=== PATIENT | female | born 1940 | race Caucasian/White ===

== ENCOUNTER 2016-10-09 09:29 | Inpatient (IN) ==
[~2016-10-09 09:29] MED LIST: ASPIRIN 325 MG TABLET PO ONE; DIAZEPAM 5 MG TABLET PO ONE; MAGNESIUM SULF RIDER 2 GM in PREMIX 1 EACH IV PRN; POTASSIUM CHLORIDE RIDER 10 MEQ in PREMIX 1 EACH IV PRN; diphenhydrAMINE CAP 25 MG CAPSULE PO ONE
[2016-10-09] MEDS ORDERED: DIAZEPAM 5 MG TABLET ONE (10:21)
[2016-10-09] MEDS ORDERED: ASPIRIN 325 MG TABLET ONE ×2 (10:21→13:19)
[2016-10-09] MEDS ORDERED: diphenhydrAMINE CAP 25 MG CAPSULE ONE (10:21)
[2016-10-09] MEDS: SODIUM CHLORIDE 0.9% 1,000 ML IV SCH ×3 (10:26→20:27)
[2016-10-09 10:39] LABS: PT Patient Result 10.9 SECS; Partial Thromboplastin Time < 21.0 SECS (0-40)
[2016-10-09 10:51] LABS: Basophils # 0.1 10*3/uL (0.0-0.2); Basophils % 0.6 % (0.0-0.8); Eosinophils # 0.3 10*3/uL (0.0-0.87); Eosinophils % 3.7 % (0.00-10.9); Hematocrit 35.8 VOL% (35.7-47.0); Hemoglobin 11.4 GM/DL (12.0-16.0); Immature Granulocytes % 0.5 %; Immature Granulocytes Absolute 0.04 #; Lymphocytes # 1.6 10*3/uL (1.4-4.0); Lymphocytes % 19.9 % (21.3-54.2); Mean Corpuscular HGB Conc 31.8 GM/DL (32-36); Mean Corpuscular Hemoglobin 27 PG (27-34); Mean Corpuscular Volume 84.6 FL (87-102); Mean Platelet Volume 10.5 FL (9.6-12.0); Monocytes # 0.4 10*3/uL (0.11-0.8); Monocytes % 5.5 % (1.7-12.7); Neutrophils # 5.4 10*3/uL (1.4-7.4); Neutrophils % 69.8 % (38.7-73.9); Platelet Count 220 T/CUMM (130-400); Red Blood Count 4.23 MC/CUMM (3.8-5.5); Red Cell Distribution Width 14.7 % (9.3-17.3); White Blood Count 7.8 T/CUMM (4-12)
[2016-10-09 10:54] LABS: Calcium 8.9 MG/DL (8.5-10.1); Magnesium 2.1 MG/DL (1.8-2.4); Osmolality,Calculated 279.5 MOS/KG (273-304); Potassium 4.6 MMOL/L (3.5-5.1)
[2016-10-09 12:09] LABS: Hypochromasia 1+; Platelet Estimate Adequate
[2016-10-09] MEDS ORDERED: LIDOCAINE 1% 20 ML VIAL ONE (12:28)
[2016-10-09] MEDS ORDERED: HYDROmorphone 2 MG/1 ML VIAL ONE (12:29)
[2016-10-09] MEDS ORDERED: MIDAZOLAM 2 MG/2 ML VIAL ONE (12:29)
[2016-10-09] MEDS ORDERED: HEPARIN 5,000 UNIT/1 ML VIAL ONE (13:00)
--- NOTE | 2016-10-09 14:18 | Cardiology Operative Report ---
Date of Procedure:: 10/09/16 Post-op diagnosis: same Procedure: Procedures performed: 1. Bilateral abdominal aortogram with lower extremity runoff 2. Failed attempt to cross proximal right popliteal occlusion 3. Left femoral arteriotomy closures with minx device Brief summary: Mrs. Gottlieb underwent atherectomy and stenting of her heavily calcified significant right common iliac stenosis in the last couple of weeks. Her ABIs increased from about 0.33 to about 0.41 with slight improvement in her claudication. However she is extremely limited and is noted to have right common femoral disease as well as right popliteal occlusion. She is here for to that opening of her popliteal occlusion a reassessment of her common femoral artery disease. Description of procedure: After obtaining informed consent the patient transferred cath over the left groin was prepped and draped usual sterile fashion. Next a short 6 Brazilian sheath was placed in the left femoral arteries a modified Seldinger technique The patient received IV sedation and local anesthetic. Next a bent pigtail catheter was advanced abdominal aorta were abdominal aortogram with peripheral runoff. Patient was given 5500 units of heparin intravenously which achieved a therapeutic ACT of 290. This was then removed and a DEL VALLE catheter was used to advance a stiff angled Glidewire, which was used to swab out for a 65 cm 6 Brazilian destination sheath, but could not get the wire into the right SFA. The wire would favor the profunda branch. I eventually pulled black the sheath just above the right common femoral artery and performed angiograms. I then crossed into the SFA with difficulty using a 014, and wire and a 014 long seeker catheter. I advanced the cecum without difficulty to the proximal right popliteal occlusion in the P1 segment. I seem to make some progress but could not given the distal reconstitution/could not cross the distal. I tried multiple techniques without success. I felt further attempts were probably futile. I therefore remove the wire and seeker catheter. I took good shots of the right iliac stent and right femoral artery disease using multiple views to better elucidated. The sheath was changed out for the short sheath using a long wire. An hemostasis was obtained with a minx device without residual bleeding. ACT was noted to 40 range at the end of the procedure. Abdominal aortogram with lower extremity runoff: The abdominal aorta is normally developed with widely patent bilateral renal arteries. There is moderate irregularities in the abdominal aorta and iliac segments with patent internal iliac arteries. The stented right common iliac area is patent and is at most minimally undersized proximally and well size distally. The right common femoral artery shows eccentric 70% disease in the midportion. Later after I took selective shots in the MENON view I could see there was a critical bifurcation lesion at the distal common femoral involving the ostium of the SFA and the profunda of 95%. The SFA on both sides has only mild diffuse disease less than 30%. There is an intermediate 60% left common femoral artery stenosis. There is Reasonable three-vessel runoff on the left to the mid calf. The right popliteal is occluded in the P1 segment/proximally. It reconstitutes at the proximal PT trunk with very sluggish two-vessel runoff through collaterals. Impression: 1. Widely patent right common iliac artery stent is noted 2. Eccentric 70% mid right common femoral artery disease with critical greater than 95% distal bifurcation lesion involving the ostium of the SFA and the profunda. 3. Proximal right popliteal occlusion with reconstitution at the proximal tibial trunk through collaterals, and apparent sluggish two-vessel runoff. 4. Failed attempt at open right popliteal occlusion (I cross the proximal, but was unable to cross the distal cap and reenter the distal vessel) Recommendation discussion: Although intervention on her ostial SFA critical lesion is feasible, seems a may be safer to do this through a surgical approach if this is offered. I will consult vascular surgery to evaluate for common femoral endarterectomy. She will need to avoid squatting straining or lifting. Next week. I will hold her metformin until Friday morning. We will continue baby aspirin Pletal. I will hold Plavix for now. Anesthesia: minimal conscious sedation Surgeon / Physician: Mark Florentino Improvement Manager: other Estimated blood loss: minimal Specimens: none sent Condition: stable Disposition: floor
[2016-10-09] MEDS: CILOSTAZOL 50 MG TABLET PO SCH (20:23)
[2016-10-10 06:02] LABS: Basophils # 0.1 10*3/uL (0.0-0.2); Basophils % 0.8 % (0.0-0.8); Eosinophils # 0.4 10*3/uL (0.0-0.87); Eosinophils % 5.7 % (0.00-10.9); Hematocrit 27.6 VOL% (35.7-47.0); Hemoglobin 8.8 GM/DL (12.0-16.0); Immature Granulocytes % 0.5 %; Immature Granulocytes Absolute 0.04 #; Lymphocytes # 1.8 10*3/uL (1.4-4.0); Lymphocytes % 23.7 % (21.3-54.2); Mean Corpuscular HGB Conc 31.9 GM/DL (32-36); Mean Corpuscular Hemoglobin 27 PG (27-34); Mean Corpuscular Volume 83.6 FL (87-102); Monocytes # 0.6 10*3/uL (0.11-0.8); Monocytes % 7.6 % (1.7-12.7); Neutrophils # 4.6 10*3/uL (1.4-7.4); Neutrophils % 61.7 % (38.7-73.9); Platelet Count 204 T/CUMM (130-400); White Blood Count 7.5 T/CUMM (4-12)
[2016-10-10 06:40] LABS: Calcium 8.1 MG/DL (8.5-10.1); Osmolality,Calculated 282.3 MOS/KG (273-304); Potassium 4.3 MMOL/L (3.5-5.1)
[2016-10-10] MEDS: SODIUM CHLORIDE 0.9% 1,000 ML IV SCH ×2 (06:54→17:00)
[2016-10-10] MEDS ORDERED: ASPIRIN EC 81 MG TABLET PO SCH (09:00)
[2016-10-10] MEDS: ASPIRIN EC 81 MG TABLET PO SCH (09:26)
[2016-10-10] MEDS: ROSUVASTATIN 20 MG TABLET PO SCH (09:26)
[2016-10-10] MEDS: CILOSTAZOL 50 MG TABLET PO SCH ×2 (09:26→20:37)
--- NOTE | 2016-10-10 10:55 | Vascular Surgery Consult Note ---
History of Present Illness Chief complaint: right femoral atherosclerosis History of present illness: Ms. Hoover is a 75 year old female Mrs. Hoover is a 75-year-old woman with severe life limiting claudication involving her right leg. She has undergone right common iliac stenting successfully but with little improvement of her overall symptoms. She is now undergone follow-up arteriography with findings of extensive plaquing of the right common femoral artery at its bifurcation and just above. She also has what appears to be a total occlusion of her right popliteal that does reconstitute some what. She did not have any acute ischemia but is badly limited by the claudication. I have reviewed her arteriogram and discussed with Dr. Bruce and I think that the best approach for Mrs. Hawk is a right femoral endarterectomy. Do not believe distal bypass grafting is indicated in this case were were dealing with claudication plus I believe this the endarterectomy itself will make a marked improvement in her claudication. I discussed this with Ms. Hawk and her son who is an 80 and clinical nursing manager at [employer]. I have reviewed the arteriogram photos that Dr. Bruce has provided them explaining the nature of the disease and the procedure that we have to offer. I have explained the complications of postoperative bleeding infection chronic edema thrombosis and possible limb loss. They understand and accept the recommendation for the right femoral endarterectomy which I will schedule for tomorrow Home Medications Medication Instructions Recorded Confirmed Type Aspirin [Ecotrin] 81 mg PO DAILY 09/16/16 10/09/16 History Cilostazol 50 mg PO BID 09/16/16 10/09/16 History Ergocalciferol (Vitamin D2) 50,000 units PO SUWE 09/16/16 10/09/16 History [Vitamin D2] metFORMIN [Glucophage] 500 mg PO BID 09/16/16 10/09/16 History Clopidogrel [Plavix] 75 mg PO DAILY #30 tablet 09/17/16 10/09/16 Rx Rosuvastatin [Crestor] 40 mg PO DAILY #30 tablet 09/17/16 10/09/16 Rx Allergies Allergy/AdvReac Type Severity Reaction Status Date / Time Sulfa (Sulfonamide Allergy Unknown/Unable Verified 10/09/16 09:44 Antibiotics) to obtain Medical,Surgical,& Family Hx - Medical History Cardio: History of: Hypertension Neurology: History of: TIA No history of: Seizures HEENT: History of: Eye Problem (Glasses) Endocrine: History of: Diabetes Mellitus (NIDDM) - Surgical History Thoracic Surgeries: Patient denies;: Organ Transplant Abdominal Surgeries: Surgical HX of: Cholecystectomy Reproductive Surgeries: Surgical HX of;: Hysterectomy Orthopedic Surgeries: Surgical HX of;: Orthopedic Surgery (shoulder and knee scope) - Family History Family History: Reports;: Family Cancer, Family Diabetes, Family Hypertension - Social History Smoking Status: Former smoker Frequency of Alcohol Use: None Type of Drug Use: None Exam - Constitutional Vitals: Period Temp Pulse Resp BP Sys/De Pulse Ox Last 24 Hr 97.2 F-98.2 F 78-114 12-18 96-132/46-72 93-97 Results - Labs CBC & BMP: 10/10/16 05:40 10/10/16 05:40
--- NOTE | 2016-10-10 14:39 | EKG Report ---
Stationary ECG Study [facility] Test Date: 10/10/2016 2:39:31 PM Pat Name: OMID GRAY Department: Room: 537 Gender: F Diagnostic Radiologist: SIMONA : 1940 Requested by: Wesley Belle Order Number: [id number] Reading MD: OTTONIEL JARAMILLO Intervals [place] Rate: 95 P: 59 RI: 167 QRS: 24 QRSD: 90 T: 23 QT: 371 QTc: 424 Interpretive Statements SINUS RHYTHM Electronically Signed On 10-11-16 17:43:40 CDT by OTTONIEL JARAMILLO [email or web address]
--- NOTE | 2016-10-10 15:13 | XRay Report ---
XR chest 2V Date: 10/10/2016 2:23 PM History: Respiratory preoperative evaluation Comparison: None Technique: PA and lateral chest Findings: The heart is minimally enlarged with calcification in the wall of the tortuous aorta. Large hiatal hernia. Probable chronic scarring in the lungs. Prior cholecystectomy. Osteopenia with chronic volume loss in the distal right clavicle. Degenerative changes are noted. Impression: Large hiatal hernia. Probable chronic scarring in the lungs with no definite acute parenchymal findings. Osteopenia with probable postoperative findings in the distal right clavicle. Prior cholecystectomy. PROCEDURE INTERPRETED AT [facility] DEPARTMENT OF RADIOLOGY Final Report Signed by: Dr. Indira Evans
--- NOTE | 2016-10-10 16:57 | Cardiology Progress Note ---
Assessment and Plan (1) PAD (peripheral artery disease) Status: Acute Assessment and plan: 1. 75-year-old with control hypertension, treated dyslipidemia, NIDDM, and recently noted severe PAD with several years of claudication which has become quite severe in the right lower extremity in recent weeks with right popliteal occlusion, and critical distal common femoral bifurcation lesion involving the profunda and ostial SFA not easily amenable to percutaneous intervention. 2. Dr. Mittal is been consulted and is planning for endarterectomy tomorrow 3. I stented her heavily calcified right common iliac disease 2 months ago; this is widely patent, but her right ELOINA only improved from 0.33 to 0.40 after the intervention. 4. Hematocrit dropped to just under 28%; this is probably dilutional in part 5. She is on baby aspirin low-dose Pletal, and is been off Plavix for a few days now. Current Visit: Yes (2) Claudication of both lower extremities Status: Acute Current Visit: Yes (3) Anemia Status: Acute Current Visit: Yes Exam (Progress Note) - Constitutional Vitals: Period Temp Pulse Resp BP Sys/De Pulse Ox Last 24 Hr 97.4 F-98.3 F 78-100 12-18 100-131/46-65 93-97 General appearance: no acute distress, over weight - Head Head exam: Present: normal inspection, normocephalic, atraumatic - Neck Neck exam: Present: normal inspection - Respiratory Respiratory exam: Absent: rhonchi, stridor, wheezes - Cardiovascular Cardiovascular exam: Present: regular rate and rhythm. Absent: bradycardia, rubs - GI/Abdominal GI/Abdominal exam: Present: soft. Absent: tenderness - Extremities Exam Extremities exam: Present: edema (trace edema), other (left groin access site without bruit or hematoma.) - Neurological Exam Neurological exam: Present: alert, oriented X3 Result/EKG - Labs CBC & BMP: 10/10/16 05:40 10/10/16 05:40 Labs: Laboratory Results - last 24 hr 10/10/16 10/10/16 05:40 05:40 WBC 7.5 RBC 3.30 L D Hgb 8.8 L D Hct 27.6 L MCV 83.6 L MCH 27 MCHC 31.9 L RDW 15.0 Plt Count 204 MPV 11.0 Neut % (Auto) 61.7 Lymph % (Auto) 23.7 [place] % (Auto) 7.6 Eos % (Auto) 5.7 Baso % (Auto) 0.8 Neut # (Auto) 4.6 Lymph # (Auto) 1.8 [place] # (Auto) 0.6 Eos # (Auto) 0.4 Baso # (Auto) 0.1 Immature Gran % 0.5 Nucleated RBC % 0.0 Immature Gran # 0.04 Nucleated RBCs # 0.00 Sodium 141 Potassium 4.3 Chloride 105 Carbon Dioxide 28 Anion Gap 12.3 BUN 10 Creatinine 0.70 GFR Calculation 88 BUN/Creatinine Ratio 14.00 Glucose 159 H Calculated Osmolality 282.3 Calcium 8.1 L
[2016-10-11] MEDS ORDERED: ceFAZolin 2,000 MG in PREMIX 1 EACH IV ONE (08:52)
[2016-10-11] MEDS: CILOSTAZOL 50 MG TABLET PO SCH ×2 (10:17→20:25)
[2016-10-11] MEDS: ROSUVASTATIN 20 MG TABLET PO SCH (10:17)
[2016-10-11] MEDS: ASPIRIN EC 81 MG TABLET PO SCH (10:17)
[2016-10-11] MEDS ORDERED: VANCOMYCIN 500 MG VIAL ONE (10:20)
[2016-10-11] MEDS ORDERED: HEPARIN 5,000 UNIT/1 ML VIAL ONE (10:20)
[2016-10-11] MEDS ORDERED: BUPIVACAINE 0.5% 50 ML VIAL ONE (10:21)
[2016-10-11] MEDS ORDERED: THROMBIN TOPICAL (RECOMBINANT) 5,000 UNIT VIAL TOP ONE (10:21)
[2016-10-11] MEDS ORDERED: PROPOFOL 200 MG/20 ML VIAL IV ONE (11:19)
[2016-10-11] MEDS ORDERED: LIDOCAINE 2% 5 ML VIAL ONE (11:19)
[2016-10-11] MEDS ORDERED: TISSUE ADHESIVE 1 EACH APPLICATOR TOP ONE (12:05)
[2016-10-11] MEDS ORDERED: MIDAZOLAM 2 MG/2 ML VIAL ONE (12:34)
[2016-10-11] MEDS ORDERED: fentaNYL 100 MCG/2 ML VIAL ONE (12:34)
[2016-10-11] MEDS ORDERED: ONDANSETRON 4 MG/2 ML VIAL IV PRN (13:16)
[2016-10-11] MEDS ORDERED: HYDROmorphone 2 MG/1 ML VIAL IV PRN ×2 (13:16→13:35)
--- NOTE | 2016-10-11 13:16 | Operative Note ---
Date of procedure: 10/11/16 Procedure: This is Dr. Mittal an operative report on Chery Hoover. Surgeon: Rowan Anesthesia: Iliev general LMA Preoperative diagnosis right femoral at the atherosclerosis with severe life limiting claudication Postoperative diagnosis: Same Procedure: A right femoral endarterectomy with bovine patch graft. Indications for the procedure: Mrs. Hawk is a 75-year-old woman who has recently undergone right common iliac artery stenting and attempted revascularization of an occluded popliteal artery which was unsuccessful. There is however extensive calcific plaquing at the common femoral and its bifurcation that I have recommended she undergo right femoral endarterectomy as this will likely significantly improve her blood flow to the extent that she will have much less claudication. I have explained the alternatives risks and complications which she understands and accepts Description of the procedure: The after the induction of general LMA anesthesia the patient's right lower abdomen and right groin and thigh are prepped with ChloraPrep and Ioban draped in usual fashion I made a somewhat vertical incision over the femoral canal carried this through the subcutaneous tissues just lateral to the saphenous vein I continued dissecting down to the femoral canal dissected the superficial femoral and controlled it with a small vessel loop I continued dissecting along the superficial femoral proximally noting fairly extensive scarring of the common femoral this appears to be possibly related to a closure device from previous cardiac catheterizations. I eventually was able to clear the common femoral external iliac profunda and superficial femoral arteries and control these all with Vesseloops patient received 5000 units of heparin I used a Satinsky on the external iliac for control this was above the level of the primary plaques which were quite easily palpated and made a longitudinal arteriotomy from the proximal superficial femoral to the near the external iliac there was indeed ulcerated and calcific plaque in this area particularly at the bifurcation of the femoral artery. I performed endarterectomy removing the diseased intima media from the bifurcation well up to the external iliac which had much less disease. This feathered nicely on the profunda I used 7-0 Prolene under loupe magnification to tack down the intima and media of the superficial femoral. I was able to run a forward #3 Kathryn down the superficial femoral without finding any thrombus and it would go approximately 40 cm but not fully into the tibial vessels. There was good backbleeding from both the superficial femoral and profunda. It shows a 0.8 x 8 cm bovine pericardial patch and 5-0 Prolene suture this over the arteriotomy getting a good closure flushing proximally and distally prior to completing the closure flow was initiated from the common femoral into the profunda and then restored into the superficial femoral. There was good flow in both of these vessels by Doppler and a markedly improved pulse in the superficial femoral compared to preoperative. Heparin was partially reversed with 25 g protamine single bleeding site was sutured with 6- 0 Prolene Tisseel was sprayed over the arteriotomy and in the femoral canal. The incision was closed with 2 layers of running 2-0 Monocryl a 4-0 Monocryl subcuticular and surgical glue. Blood loss estimated at 150 cc sponge needle and aspirate counts are correct and the patient taken to recovery in stable condition Surgeon / Physician: Jacob Mittal Results - Labs CBC & BMP: 10/10/16 05:40 10/10/16 05:40 Discharge Plan - Discharge Medications No Action Ergocalciferol (Vitamin D2) [Vitamin D2] 50,000 units PO SUWE Clopidogrel [Plavix] 75 mg PO DAILY #30 tablet Cilostazol 50 mg PO BID Aspirin [Ecotrin] 81 mg PO DAILY metFORMIN [Glucophage] 500 mg PO BID Rosuvastatin [Crestor] 40 mg PO DAILY #30 tablet - Follow Up or Referral - Forms/Instructions
[2016-10-11] MEDS ORDERED: oxyCODONE/ACETAMINOPHEN 5-325 MG TABLET PO PRN ×2 (13:20)
--- NOTE | 2016-10-11 13:23 | Anesthesia ---
Anesthesia Post OP - Post Ansesthetic Evaluation Patient seen in post op: Yes Resp: within normal limits CV: within normal limits Mental: within normal limits Temp: within normal limits [id number]: within normal limits Nausea and Vomiting: within normal limits Pain: within normal limits
--- NOTE | 2016-10-11 13:54 | Cardiology Progress Note ---
Assessment and Plan (1) PAD (peripheral artery disease) Status: Acute Assessment and plan: 1. 75-year-old with control hypertension, treated dyslipidemia, NIDDM, and recently noted severe PAD with several years of claudication which has become quite severe in the right lower extremity in recent weeks with right popliteal occlusion, and critical distal common femoral bifurcation lesion involving the profunda and ostial SFA not easily amenable to percutaneous intervention. 2. Dr. Mittal is been consulted and is planning for endarterectomy tomorrow 3. I stented her heavily calcified right common iliac disease 2 months ago; this is widely patent, but her right ELOINA only improved from 0.33 to 0.40 after the intervention. 4. Hematocrit dropped to just under 28%; this is probably dilutional in part 5. She is on baby aspirin low-dose Pletal, and is been off Plavix for a few days now. October 11 update: 1. Immediately postop right femoral endarterectomy of critical distal right circumflex disease involving the ostia of the SFA and profunda; she is hemodynamic stable and doing well immediately postop with 1-2+ right DP pulse 2. Plavix is been restarted, and she is on aspirin and low-dose cilostazol 3. Hematocrit did drop modestly to just under 28% yesterday with significant IV fluids. 4. Routine morning labs ordered 5. Dr. Mittal agreed to follow her and discharge her when appropriate. I'll plan to see her in 2-3 weeks. Current Visit: Yes (2) Claudication of both lower extremities Status: Acute Current Visit: Yes (3) Anemia Status: Acute Current Visit: Yes Cardiology - PN: Subj Interval history: This is still a bit sleepy but is awake now immediately postop. She has no complaints. She has a strong 1-2+ right DP pulse. She has not had any chest pain dysrhythmia hypotension or tachycardia. Her heart rate is in the 90s. Exam (Progress Note) - Constitutional Vitals: Period Temp Pulse Resp BP Sys/De Pulse Ox Last 24 Hr 97.8 F-98.7 F 68-93 14-18 105-165/53-71 94-97 General appearance: normal weight, no acute distress - Head Head exam: Present: normal inspection, normocephalic, atraumatic - Neck Neck exam: Present: normal inspection - Respiratory Respiratory exam: Present: clear to auscultation bilaterally. Absent: rhonchi, wheezes - Cardiovascular Cardiovascular exam: Present: regular rate and rhythm. Absent: diastolic murmur , rubs - GI/Abdominal GI/Abdominal exam: Present: soft. Absent: tenderness - Extremities Exam Extremities exam: Present: other (1 to plus right DP pulse). Absent: edema - Neurological Exam Neurological exam: Present: alert, oriented X3 Result/EKG - Labs CBC & BMP: 10/10/16 05:40 10/10/16 05:40 Labs: Laboratory Results - last 24 hr 10/11/16 10/11/16 10:48 Unknown POC Glucose 206 H Blood Type A NEGATIVE Antibody Screen Negative Specialty Discharge - Follow Up or Referrals Follow up with: Mark Florentino MD [Physician] - 2 Weeks (Follow with me in 2-3 weeks with [facility] CMP CBC)
[2016-10-11] MEDS ORDERED: HYDROmorphone 2 MG/1 ML VIAL ONE (13:55)
[2016-10-11] MEDS ORDERED: ONDANSETRON 4 MG/2 ML VIAL ONE (13:55)
--- NOTE | 2016-10-11 15:06 | Event Note ---
Mrs. Hawk is doing well postoperatively foot is warm I cannot palpate pedal pulses but there are Doppler signals in the dorsalis posterior tibial incision looks good with no hematoma
[2016-10-11] MEDS: CLOPIDOGREL 75 MG TABLET PO SCH (15:35)
[2016-10-12 03:24] LABS: Basophils % 0.3 % (0.0-0.8); Eosinophils # 0.3 10*3/uL (0.0-0.87); Eosinophils % 4.5 % (0.00-10.9); Hematocrit 24.4 VOL% (35.7-47.0); Hemoglobin 7.6 GM/DL (12.0-16.0); Immature Granulocytes % 0.7 %; Immature Granulocytes Absolute 0.05 #; Lymphocytes # 1.9 10*3/uL (1.4-4.0); Lymphocytes % 27.2 % (21.3-54.2); Mean Corpuscular HGB Conc 31.1 GM/DL (32-36); Mean Corpuscular Hemoglobin 27 PG (27-34); Mean Platelet Volume 11.7 FL (9.6-12.0); Monocytes # 0.6 10*3/uL (0.11-0.8); Monocytes % 8.3 % (1.7-12.7); Neutrophils # 4.2 10*3/uL (1.4-7.4); Platelet Count 197 T/CUMM (130-400); Red Blood Count 2.87 MC/CUMM (3.8-5.5); Red Cell Distribution Width 14.9 % (9.3-17.3); White Blood Count 7.1 T/CUMM (4-12)
[2016-10-12 03:42] LABS: Calcium 8.2 MG/DL (8.5-10.1); Osmolality,Calculated 286.3 MOS/KG (273-304); Potassium 4.3 MMOL/L (3.5-5.1)
[2016-10-12] MEDS: CLOPIDOGREL 75 MG TABLET PO SCH (08:26)
[2016-10-12] MEDS: ASPIRIN EC 81 MG TABLET PO SCH (08:26)
[2016-10-12] MEDS: FONDAPARINUX 2.5 MG/0.5 ML SYRINGE SUBCUT SCH (08:26)
[2016-10-12] MEDS: CILOSTAZOL 50 MG TABLET PO SCH ×2 (08:26→20:23)
[2016-10-12] MEDS: ROSUVASTATIN 20 MG TABLET PO SCH (08:26)
[2016-10-12] MEDS ORDERED: CLOPIDOGREL 75 MG TABLET PO SCH (09:00)
[2016-10-12] MEDS ORDERED: ASPIRIN CHEW 81 MG TABLET PO SCH (09:00)
--- NOTE | 2016-10-12 09:14 | Event Note ---
Ms. Hawk had a right femoral endarterectomy and patch graft yesterday. She is doing well and I actually do feel a dorsalis pedis pulse today. We are going to have her get up and walk today a walker will be fine for her to use but if she ambulates well today she could conceivably go home tomorrow. She will continue an 81 mg aspirin and 75 mg Plavix at home I will go ahead and do potential discharge and I will see her in the office week after next. I have discussed with her wound care exercise and potential complications. Also going to start Trinsicon as she does have a bit of an anemia following the surgery.
--- NOTE | 2016-10-12 09:23 | Discharge Summary ---
Hospital Course - Hospital Course Hospital Course: Mrs. Hawk was admitted and underwent angiography and attempted revascularization of her right popliteal artery this was unsuccessful but was found to have highly stenotic areas involving the common femoral artery. I performed a right femoral endarterectomy patch graft on 10/11/2016 and she now has a much better perfused foot. Actually I think there is a weakly palpable dorsalis pedis pulse. We will have her get up and walk today and if she does well she could conceivably go home on Friday. I discussed with her and her son her wound care and exercise expected recovery new medications. We will get a walker and asked PT to help her start ambulating to be sure she can do so before discharged home I will then follow her in the office in approximately 10 days. Specialty Discharge - Follow Up or Referrals Follow up with: Mark lForentino MD [Physician] - 2 Weeks (Follow with me in 2-3 weeks with [facility] CMP CBC) Discharge Plan - Discharge Data Disposition: Disch To Home/Self Care Condition at Discharge: Stable Discharge Diet: advance to your usual diet Activity: resume usual activities as tolerated Hygiene: may shower Weight Bearing at Discharge: full weight bearing Driving: not until seen by doctor Contact your physician if you experience:: fever over 101, Redness or swelling, Bleeding - Discharge Medications New oxyCODONE/ACETAMINOPHEN 5-325 [Percocet 5-325] 1 - 2 tablet PO Q4H PRN #30 tablet PRN Reason: Pain Moderate (4-7) Multivitamin (Intrinsic) [Trinsicon] 1 capsule PO BID #60 capsule oxyCODONE/ACETAMINOPHEN 5-325 [Percocet 5-325] 1 - 2 tablet PO Q4H PRN #30 tablet PRN Reason: Pain Moderate (4-7) Continue Ergocalciferol (Vitamin D2) [Vitamin D2] 50,000 units PO SUWE Clopidogrel [Plavix] 75 mg PO DAILY #30 tablet Aspirin [Ecotrin] 81 mg PO DAILY metFORMIN [Glucophage] 500 mg PO BID Rosuvastatin [Crestor] 40 mg PO DAILY #30 tablet Discontinued Cilostazol 50 mg PO BID - Follow Up or Referral Follow Up: Mark Florentino MD [Physician] - 2 Weeks (Follow with me in 2-3 weeks with [facility] CMP CBC) Jacob Mittal MD [Physician] - 10/21/16 - Forms/Instructions Exam - Constitutional Vitals: Period Temp Pulse Resp BP Sys/De Pulse Ox Last 24 Hr 96.7 F-98.4 F 88-99 16-20 103-129/47-75 90-98 Discharge Results Labs on day of discharge: Labs from last 24 hours 10/12/16 10/12/16 10/11/16 02:27 02:27 Unknown WBC 7.1 RBC 2.87 L Hgb 7.6 L Hct 24.4 L MCV 85.0 L MCH 27 MCHC 31.1 L RDW 14.9 Plt Count 197 MPV 11.7 Neut % (Auto) 59.0 Lymph % (Auto) 27.2 [place] % (Auto) 8.3 Eos % (Auto) 4.5 Baso % (Auto) 0.3 Neut # (Auto) 4.2 Lymph # (Auto) 1.9 [place] # (Auto) 0.6 Eos # (Auto) 0.3 Baso # (Auto) 0.0 Immature Gran % 0.7 Nucleated RBC % 0.0 Immature Gran # 0.05 Nucleated RBCs # 0.00 Sodium 141 Potassium 4.3 Chloride 106 Carbon Dioxide 27 Anion Gap 12.3 BUN 9 Creatinine 0.70 GFR Calculation 88 BUN/Creatinine Ratio 12.00 Glucose 219 H POC Glucose Calculated Osmolality 286.3 Calcium 8.2 L Blood Type A NEGATIVE Antibody Screen Negative 10/11/16 10:48 WBC RBC Hgb Hct MCV MCH MCHC RDW Plt Count MPV Neut % (Auto) Lymph % (Auto) [place] % (Auto) Eos % (Auto) Baso % (Auto) Neut # (Auto) Lymph # (Auto) [place] # (Auto) Eos # (Auto) Baso # (Auto) Immature Gran % Nucleated RBC % Immature Gran # Nucleated RBCs # Sodium Potassium Chloride Carbon Dioxide Anion Gap BUN Creatinine GFR Calculation BUN/Creatinine Ratio Glucose POC Glucose 206 H Calculated Osmolality Calcium Blood Type Antibody Screen DS: Provider Date of admission: 10/10/16 17:04 Primary care physician: . No PCP Attending physician on admission: Mark Vasquez Consults: 10/09/16 14:28 Consult to Physician [CONS] Routine Comment: Consulting Provider: Jacob Mittal Person Notified: [email or web address] Date Notified: 10/09/16 Time Notified: 15:13 10/11/16 13:45 Consult to Pharmacy [CONS] Routine Reason for Pharmacy Consult: Adjust Meds Renal Funct 10/12/16 09:16 Consult to Physical Therapy [CONS] Routine Reason for Physical Therapy: Ambulation Discharging clinician: Jacob Mittal MD
[2016-10-12] MEDS: MULTIVITAMIN (INTRINSIC) CAPSULE PO SCH (20:23)
[2016-10-13] MEDS: FONDAPARINUX 2.5 MG/0.5 ML SYRINGE SUBCUT SCH (06:22)
[2016-10-13] MEDS: CILOSTAZOL 50 MG TABLET PO SCH (08:32)
[2016-10-13] MEDS: ROSUVASTATIN 20 MG TABLET PO SCH (08:32)
[2016-10-13] MEDS: ASPIRIN EC 81 MG TABLET PO SCH (08:32)
[2016-10-13] MEDS: CLOPIDOGREL 75 MG TABLET PO SCH (08:32)
[2016-10-13] MEDS: MULTIVITAMIN (INTRINSIC) CAPSULE PO SCH (08:32)
[2016-10-13 09:17] VITALS: BP 94/44
--- NOTE | 2016-10-13 10:32 | Event Note ---
She feels well and has no complaints. She has no rest pain. Her lower extremity appears warm and well perfused. She has been ambulating. I think that she should be okay for discharge home and has follow-up scheduled with Dr. Donahue.
--- NOTE | 2016-10-14 11:22 | Pathology Report from [facility] ---
ACCESSION # : [id number] PATIENT NAME : Chery Hoover ORDERING DR : CALLY KNOX MD CLINICAL HX: RT femoral atherosclerosis POST-OP DX: Same SPECIMEN INFO: RT femoral plaque GROSS DESCRIPTION: Received in formalin labeled "CHERY HOOVER" consists of multiple pink wilson fragments of endarterectomy tissue measuring collectively 6.3 x 1 cm. Calcification is present. Autocad sections are submitted in one cassette following decalcification. DIAGNOSIS FOR CHERY HOOVER: RIGHT FEMORAL PLAQUE, ENDARTERECTOMY: Calcified atheromatous plaque. SERVICE DATE: 10/11/2016 REPORT DATE: 10/14/2016 PATHOLOGIST: Jordi Khan M.D. [facility]
== END 2016-10-13 11:32 | disposition home or self-care (01) | DRG 253 ==
LOC: N.CL 09:29 → N.5E 09:29 → N.CL 09:40 → N.5E 15:10
PROVIDERS: ADMIT Internal Medicine Cardiovascular Disease; ATTEND Surgery

== ENCOUNTER 2020-10-23 06:04 | Inpatient (IN) ==
[2020-10-18 12:35] LABS: Basophils % 0.5 % (0.0-0.8); Eosinophils # 0.8 10*3/uL (0.0-0.87); Eosinophils % 10.9 % (0.00-10.9); Hematocrit 35.6 VOL% (35.7-47.0); Hemoglobin 11.2 GM/DL (12.0-16.0); Immature Granulocytes % 0.4 %; Immature Granulocytes Absolute 0.03 #; Lymphocytes # 1.8 10*3/uL (1.4-4.0); Lymphocytes % 23.8 % (21.3-54.2); Mean Corpuscular HGB Conc 31.5 GM/DL (32-36); Mean Corpuscular Volume 85.2 FL (87-102); Mean Platelet Volume 11.5 FL (9.6-12.0); Monocytes % 5.8 % (1.7-12.7); Neutrophils % 58.6 % (38.7-73.9); Platelet Count 227 T/CUMM (130-400); Red Blood Count 4.18 MC/CUMM (3.8-5.5); Red Cell Distribution Width 13.6 % (9.3-17.3); White Blood Count 7.4 T/CUMM (4-12)
[2020-10-18 12:47] LABS: PT Patient Result 10.9 SECS (9.8-11.9)
[2020-10-18 13:00] LABS: Albumin 3.6 G/DL (3.4-5.0); Bilirubin,Total 0.6 MG/DL (0.2-1.0); Calcium 9.3 MG/DL (8.5-10.1); Osmolality,Calculated 286.7 MOS/KG (273-304); Potassium 4.7 MMOL/L (3.5-5.1); Total Protein 6.8 G/DL (6.4-8.2)
[2020-10-23] MEDS ORDERED: HEPARIN 5,000 UNIT/1 ML VIAL ONE (06:25)
[2020-10-23] MEDS ORDERED: fentaNYL 100 MCG/2 ML VIAL ONE (07:13)
[2020-10-23] MEDS ORDERED: LACTATED RINGERS 1,000 ML IV SCH (07:30)
[2020-10-23] MEDS ORDERED: PHENYLEPHRINE DRIP 20 MG/250 ML PREMIX IV ONE (07:31)
[2020-10-23] MEDS ORDERED: ROCURONIUM 50 MG/5 ML VIAL IV ONE (09:11)
[2020-10-23] MEDS ORDERED: DEXAMETHASONE 4 MG/1 ML VIAL ONE (09:11)
[2020-10-23] MEDS ORDERED: SEVOFLURANE 1 UNIT/15 MINUTE INH ONE ×6 (09:11→10:02)
[2020-10-23] MEDS ORDERED: HEPARIN 10,000 UNIT/10 ML VIAL ONE ×2 (09:11→10:02)
[2020-10-23] MEDS ORDERED: ETOMIDATE 40 MG/20 ML VIAL IV ONE (09:11)
[2020-10-23] MEDS ORDERED: propofoL 200 MG/20 ML VIAL IV ONE (09:11)
[2020-10-23] MEDS ORDERED: ONDANSETRON 4 MG/2 ML VIAL ONE (09:11)
[2020-10-23] MEDS ORDERED: PROTAMINE SULFATE 50 MG/5 ML VIAL IV ONE (09:49)
[2020-10-23] MEDS ORDERED: TISSUE ADHESIVE 1 EACH APPLICATOR TOP ONE (09:57)
[2020-10-23] MEDS ORDERED: GLYCOPYRROLATE 0.4 MG/2 ML VIAL ONE (10:01)
[2020-10-23] MEDS ORDERED: NEOSTIGMINE 10 MG/10 ML VIAL ONE (10:01)
[2020-10-23] MEDS ORDERED: HYDROmorphone 2 MG/1 ML VIAL IV PRN (10:12)
[2020-10-23 10:34] LABS: Bilirubin,Urine Negative (Negative); Blood, Urine Negative (Negative); Glucose,Urine (UA) 50 mg/dL (Negative); Hyaline Casts,Urine 10 /LPF (0-3); Ketones,Urine Negative (Negative); Mucus,Urine Occasional /LPF (Occasional); Nitrite,Urine Negative (Negative); Protein,Urine Negative; RBC,Urine 1 /HPF (0-4); Urine Appearance CLEAR (Clear); Urine Color Yellow (Yellow); Urine Specific Gravity 1.017 (1.001-1.035)
[2020-10-23 11:10] LABS: Hematocrit 34.5 VOL% (35.7-47.0); Hemoglobin 10.5 GM/DL (12.0-16.0)
[2020-10-23] MEDS ORDERED: GLUCAGON 1 MG VIAL IM PRN (15:37)
[2020-10-23] MEDS ORDERED: DEXTROSE 50% 25 GM/50 ML VIAL IV PRN (15:37)
[2020-10-23] MEDS: LACTATED RINGERS 1,000 ML IV SCH ×2 (15:38→23:44)
[2020-10-23] MEDS: INSULIN REGULAR 100 UNIT/ML SUBCUT SCH ×2 (16:32→20:35)
[2020-10-23] MEDS ORDERED: ACETAMINOPHEN 325 MG TABLET PO PRN (20:05)
[2020-10-24 03:45] LABS: Basophils % 0.2 % (0.0-0.8); Hematocrit 28.9 VOL% (35.7-47.0); Hemoglobin 8.9 GM/DL (12.0-16.0); Immature Granulocytes % 0.5 %; Immature Granulocytes Absolute 0.04 #; Lymphocytes # 1.2 10*3/uL (1.4-4.0); Lymphocytes % 13.9 % (21.3-54.2); Mean Corpuscular HGB Conc 30.8 GM/DL (32-36); Mean Corpuscular Volume 84.8 FL (87-102); Mean Platelet Volume 11.4 FL (9.6-12.0); Monocytes % 8.9 % (1.7-12.7); Neutrophils % 76.5 % (38.7-73.9); Platelet Count 198 T/CUMM (130-400); Red Blood Count 3.41 MC/CUMM (3.8-5.5); Red Cell Distribution Width 13.6 % (9.3-17.3); White Blood Count 8.6 T/CUMM (4-12)
[2020-10-24 03:55] LABS: Calcium 8.7 MG/DL (8.5-10.1); Osmolality,Calculated 283.5 MOS/KG (273-304); Potassium 4.3 MMOL/L (3.5-5.1)
[2020-10-24] MEDS: CLOPIDOGREL 75 MG TABLET PO SCH (08:11)
[2020-10-24] MEDS: OLMESARTAN 20 MG TABLET PO SCH (08:11)
[2020-10-24] MEDS: EZETIMIBE 10 MG TABLET PO SCH (08:11)
[2020-10-24] MEDS: ROSUVASTATIN 20 MG TABLET PO SCH (08:11)
[2020-10-24] MEDS: ASPIRIN EC 81 MG TABLET PO SCH (08:11)
[2020-10-24] MEDS: INSULIN REGULAR 100 UNIT/ML SUBCUT SCH ×4 (08:11→19:54)
[2020-10-24] MEDS: LACTATED RINGERS 1,000 ML IV SCH (08:12)
[2020-10-24] MEDS: metFORMIN 500 MG TABLET PO SCH ×2 (09:21→15:59)
[2020-10-24] MEDS ORDERED: KETOROLAC 30 MG/1 ML VIAL IV ONE (16:55)
[2020-10-24] MEDS ORDERED: diphenhydrAMINE CAP 25 MG CAPSULE PO PRN (16:56)
[2020-10-24] MEDS ORDERED: PROMETHAZINE 25 MG/1 ML VIAL IM PRN (16:57)
[2020-10-24] MEDS: ONDANSETRON 4 MG/2 ML VIAL IV PRN (17:10)
[2020-10-24] MEDS: KETOROLAC 10 MG TABLET PO SCH (17:10)
[2020-10-25] MEDS: KETOROLAC 10 MG TABLET PO SCH ×3 (00:08→11:44)
[2020-10-25] MEDS: INSULIN REGULAR 100 UNIT/ML SUBCUT SCH ×3 (07:13→16:08)
[2020-10-25] MEDS: EZETIMIBE 10 MG TABLET PO SCH (08:09)
[2020-10-25] MEDS: ASPIRIN EC 81 MG TABLET PO SCH (08:09)
[2020-10-25] MEDS: metFORMIN 500 MG TABLET PO SCH (08:09)
[2020-10-25] MEDS: ROSUVASTATIN 20 MG TABLET PO SCH (08:09)
[2020-10-25] MEDS: OLMESARTAN 20 MG TABLET PO SCH (08:09)
[2020-10-25] MEDS: CLOPIDOGREL 75 MG TABLET PO SCH (08:09)
[2020-10-25] MEDS: ONDANSETRON 4 MG/2 ML VIAL IV PRN (09:26)
[2020-10-25 15:14] VITALS: BP 98/76
[2020-10-28] MEDS ORDERED: CYANOCOBALAMIN 1000 MCG/1 ML VIAL SUBCUT SCH (09:00)
== END 2020-10-25 16:47 | disposition home health service (06) | DRG 254 ==
LOC: N.OR 06:04 → N.SDSINP 06:09 → N.5E 10:12 → EDSTATUS 13:00
PROVIDERS: ADMIT Surgery; ATTEND Surgery